=== PATIENT | female | born 1980 | race Two or more races ===

== ENCOUNTER 2017-01-19 18:00 | Emergency (ER) | payer BC, OTHER ==
[2017-01-19 19:10] LABS: HCG,QUALITATIVE URINE NEGATIVE
[2017-01-19 20:11] LABS: URINE GLUCOSE (UA) NEGATIVE (NEGATIVE); URINE LEUKOCYTE ESTERASE NEGATIVE (NEGATIVE)
[2017-01-19 20:19] LABS: URINE APPEARANCE SL CLOUDY; URINE COLOR ORANGE
[2017-01-19 20:25] LABS: URINE BACTERIA RARE; URINE EPITHELIAL CELLS 0-2 /hpf
[2017-01-19] MEDS ORDERED: CEPHALEXIN 500 MG CAPSULE ONE (20:34)
== END 2017-01-19 20:42 | disposition home or self-care (01) ==
LOC: ED 18:00
DX: N39.0 Urinary tract infection, site not specified (principal); N93.9 Abnormal uterine and vaginal bleeding, unspecified
CPT/HCPCS: 81025; 87086; 87186; 81001; 99283 ×2; A9270